=== PATIENT | female | born 1990 | race Caucasian/White ===

== ENCOUNTER 2018-12-19 06:45 | Emergency (ER) | payer BC, MEDICAID, OTHER ==
[~2018-12-19] VITALS: Ht 172.7 cm; Wt 72.6 kg
--- NOTE | 2018-12-19 07:00 | NUR ---
patient presented to the ER c/o r leg and arm pain. On room air, breathing evenly and unlabored. Kept comfortable, will continue to monitor accordingly.
--- NOTE | 2018-12-19 07:37 | NUR ---
tried to obtain a urine sample and patient refused, informed MD and made aware.
[2018-12-19 07:39] LABS: BASOPHILS # (AUTO) 0.2 /CMM (0.0-0.2); BASOPHILS % (AUTO) 4.1 % (0.0-2.0); EOSINOPHILS % (AUTO) 1.7 % (0.0-6.0); HEMATOCRIT 42 % (33-45); HEMOGLOBIN 14.5 g/dL (11.5-14.8); LYMPHOCYTES # (AUTO) 2.2 /CMM (0.8-4.8); LYMPHOCYTES % (AUTO) 40.2 % (20.0-44.0); MEAN CORPUSCULAR HGB CONC 34 g/dl (31.0-36.0); MEAN CORPUSCULAR VOLUME 90 fL (82-100); MONOCYTES # (AUTO) 0.4 /CMM (0.1-1.30); NEUTROPHILS # (AUTO) 2.5 /CMM (1.8-8.9); PLATELET COUNT (AUTO) 453 /CMM (150-450); RED BLOOD CELL COUNT(AUTO) 4.71 MIL/uL (4.0-5.2); WHITE BLOOD COUNT (AUTO) 5.4 K/uL (4.3-11.0)
[2018-12-19 07:44] LABS: CREATININE 0.8 mg/dL (0.6-1.3); POTASSIUM 3.8 mmol/L (3.5-5.1)
[2018-12-19 07:50] LABS: ALBUMIN 3.9 g/dL (3.4-5.0); BILIRUBIN,DIRECT 0.1 mg/dL (0.0-0.2); BILIRUBIN,TOTAL 0.3 mg/dL (0.2-1.0); TOTAL PROTEIN, SERUM 7.6 g/dL (6.4-8.2)
[2018-12-19 09:23] VITALS: BP 115/68
--- NOTE | 2018-12-19 09:24 | NUR ---
Patient discharged to home in stable condition. Written and verbal after care instructions given. Patient verbalizes understanding of instruction.
== END 2018-12-19 09:24 | disposition home or self-care (01) ==
LOC: ER 06:56
DX: M25.572 Pain in left ankle and joints of left foot (principal); M25.571 Pain in right ankle and joints of right foot; R60.0 Localized edema; F90.9 Attention-deficit hyperactivity disorder, unspecified type; F17.210 Nicotine dependence, cigarettes, uncomplicated; F15.10 Other stimulant abuse, uncomplicated; Z85.841 Personal history of malignant neoplasm of brain
CPT/HCPCS: 36415; 72050-TC; 80048-TC; 80076-TC; 85025-TC; 93970-TC